=== PATIENT | male | born 1930 | race Caucasian/White ===

== ENCOUNTER 2017-01-13 17:37 | Observation (INO) | payer MEDICARE ==
[~2017-01-13] VITALS: Ht 180.3 cm; Wt 85.0 kg
[~2017-01-13 17:37] MED LIST: 1-ME1LIQ PO; ALLO100T PO; ATEN-104 PO; ATOR10TA PO; CHLO50TA PO; CLON.2 PO; FURO1TAB93 PO; LOSA50TA PO; PLAV75TA PO
[2017-01-13 17:43] VITALS: BP 195/93; PULSE 112; RESP 18; TEMP 97.7; O2SAT 99
[2017-01-13 18:20] LABS: AUTOMATED NEUTROPHIL # 7.3 TH/MM3 (1.8-7.7); BASOPHIL # 0.2 TH/MM3 (0-0.2); BASOPHIL % 1.8 % (0.0-2.0); EOSINOPHIL # 0.4 TH/MM3 (0-0.4); EOSINOPHIL % 3.7 % (0.0-4.0); HEMATOCRIT 32.4 % (39.0-51.0); HEMO FLAGS DIFF FINAL; MEAN CELL VOLUME 97.3 FL (80.0-100.0); MEAN CORPUSCULAR HEMOGLOBIN 31.8 PG (27.0-34.0); MEAN CORPUSCULAR HGB CONC 32.7 % (32.0-36.0); MONO % 6.4 % (0.0-8.0); NEUT % 69.1 % (16.0-70.0); PLATELET COUNT 343 TH/MM3 (150-450); RED BLOOD COUNT 3.33 MIL/MM3 (4.50-5.90); RED CELL DISTRIBUTION WIDTH 13.3 % (11.6-17.2); WHITE BLOOD COUNT 10.6 TH/MM3 (4.0-11.0)
--- NOTE | 2017-01-13 18:21 | RADRPT ---
EXAM DATE/TIME: 01/13/2017 17:55 [place] COMPARISON: No previous studies available for comparison. INDICATIONS : Chest pain, mostly at night. MEDICAL HISTORY : Hypertension. SURGICAL HISTORY : None. ENCOUNTER: Initial ACUITY: 3 days PAIN SCORE: 7/10 LOCATION: middle chest. FINDINGS: Mild patchy infiltrates seen of both lungs, mainly the bases. No perceptible effusion. No pneumothora x. Heart size upper limits of normal. Thoracic aorta is tortuous and atherosclerotic. CONCLUSION: Mild bibasilar consolidation. Trevin Montoya MD on January 13, 2017 at 18:19 Board Certified Radiologist. This report was verified electronically.
[2017-01-13 18:27] LABS: PROTHROMBIN TIME - PATIENT 10.7 SEC (9.8-11.6)
[2017-01-13 18:36] VITALS: BP 183/99; PULSE 102; RESP 21; O2SAT 100
[2017-01-13 18:45] LABS: BICARBONATE 25.5 MEQ/L (21.0-32.0); POTASSIUM 4.3 MEQ/L (3.5-5.1)
[2017-01-13] MEDS ORDERED: CLOP100P (19:20)
[2017-01-13] MEDS ORDERED: ATEN100T PO (19:20)
[2017-01-13] MEDS ORDERED: FURO40TA PO (19:20)
[2017-01-13] MEDS ORDERED: CHLO25TA2 PO (19:20)
[2017-01-13] MEDS ORDERED: AMLO10TA2 PO (19:20)
[2017-01-13] MEDS ORDERED: LOSA100T PO (19:20)
[2017-01-13] MEDS ORDERED: ALLO100T PO (19:20)
[2017-01-13] MEDS ORDERED: PLAV75TA29 PO (19:20)
[2017-01-13] MEDS ORDERED: CLON0.2T PO (19:20)
[2017-01-13] MEDS ORDERED: ATOR10TA15 PO (19:20)
[2017-01-13] MEDS ORDERED: TAMS0.4C4 PO (19:20)
--- NOTE | 2017-01-13 19:26 | PD ---
HPI Chief Complaint: Cardiac Complaint Time Seen by Provider: 18:21 Travel History International Travel<30 days: No Contact w/Intl Traveler<30days: No Traveled to known affect area: No History of Present Illness HPI 86-year-old male came to the emergency room with history of nocturnal chest pain for past 3 nights. Patient describes it as burning sensation in his chest like acid reflux. He has been taking Tums for it and the symptoms did not fully subside and returned the next night. Today he went to see his primary care when EKG was done and the primary care detected some abnormality on the EKG. He asked the patient to come to the emergency room. Patient does not have any history of coronary stents or bypass surgery. He's never had a stress test in the past. Patient says that he had an echocardiogram done about 6-8 months ago told that everything was within normal limits. 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 Currently denies chest pain-free. He does not appear to be in any significant distress. PFSH Past Medical History Narrative Medical List of his past medical, surgical, social and family history was reviewed from the nursing note. Hx Anticoagulant Therapy: Yes (PLAVIX) Arthritis: Yes Cancer: Yes (skin) Cardiovascular Problems: Yes (HEART MURMUR) High Cholesterol: Yes Cerebrovascular Accident: Yes (tia) Gout: Yes Hypertension: Yes Renal Failure: Yes Influenza Vaccination: Yes Past Surgical History Eye Surgery: Yes (cataract) Tonsillectomy: Yes Social History Alcohol Use: Yes (wine daily) Tobacco Use: No Substance Use: No Allergies-Medications (Allergen,Severity, Reaction): Coded Allergies: No Known Allergies (Unverified , 01/13/17) Comments No known drug allergies. Reported Meds & Prescriptions Reported Meds & Active Scripts Active Reported Tamsulosin (Tamsulosin HCl) 0.4 Mg Cap 0.4 Mg PO HS Clopidogrel Bisulfate 100 Gm Powder Plavix (Clopidogrel Bisulfate) 75 Mg Tab 75 Mg PO DAILY Chlorthalidone 25 Mg Tab 25 Mg PO DAILY Amlodipine (Amlodipine Besylate) 10 Mg Tab 10 Mg PO DAILY Furosemide 40 Mg Tab 40 Mg PO DAILY Atorvastatin (Atorvastatin Calcium) 10 Mg Tab 10 Mg PO HS Losartan (Losartan Potassium) 100 Mg Tab 100 Mg PO DAILY Clonidine (Clonidine HCl) 0.2 Mg Tab 0.2 Mg PO BID Atenolol 100 Mg Tab 100 Mg PO DAILY Narrative Medication List of his home medications reviewed from the nursing note. Review of Systems Except as stated in HPI: all other systems reviewed are Neg Physical Exam Narrative GENERAL: Awake, alert, elderly and frail, no obvious distress SKIN: Focused skin assessment warm/dry. HEAD: Atraumatic. Normocephalic. EYES: Pupils equal and round. No scleral icterus. No injection or drainage. ENT: No nasal bleeding or discharge. Mucous membranes pink and moist. NECK: Trachea midline. No JVD. CARDIOVASCULAR: Regular rate and rhythm. No murmur appreciated. RESPIRATORY: No accessory muscle use. Clear to auscultation. Breath sounds equal bilaterally. GASTROINTESTINAL: Abdomen soft, non-tender, nondistended. Hepatic and splenic margins not palpable. MUSCULOSKELETAL: No obvious deformities. No clubbing. No cyanosis. No edema. NEUROLOGICAL: Awake and alert. No obvious cranial nerve deficits. Motor grossly within normal limits. Normal speech. PSYCHIATRIC: Appropriate mood and affect; insight and judgment normal. Data Data Last Documented VS Vital Signs Date Time Temp Pulse Resp B/P Pulse Ox O2 Delivery O2 Flow Rate FiO2 01/13/17 18:36 102 21 183/99 100 Room Air 01/13/17 17:43 97.7 Orders Electrocardiogram (01/13/17 17:52) Complete Blood Count With Diff (01/13/17 17:52) Basic Metabolic Panel (Bmp) (01/13/17 17:52) Ckmb (Isoenzyme) Profile (01/13/17 17:52) Troponin I (01/13/17 17:52) Chest, Single Ap (01/13/17 17:52) Prothrombin Time / Inr (Pt) (01/13/17 17:52) Admit Order (Ed Use Only) (01/13/17 19:09) Labs Laboratory Tests Test 01/13/17 18:05 White Blood Count 10.6 TH/MM3 Red Blood Count 3.33 MIL/MM3 Hemoglobin 10.6 GM/DL Hematocrit 32.4 % Mean Corpuscular Volume 97.3 FL Mean Corpuscular Hemoglobin 31.8 PG Mean Corpuscular Hemoglobin 32.7 % Concent Red Cell Distribution Width 13.3 % Platelet Count 343 TH/MM3 Mean Platelet Volume 7.8 FL Neutrophils (%) (Auto) 69.1 % Lymphocytes (%) (Auto) 19.0 % Monocytes (%) (Auto) 6.4 % Eosinophils (%) (Auto) 3.7 % Basophils (%) (Auto) 1.8 % Neutrophils # (Auto) 7.3 TH/MM3 Lymphocytes # (Auto) 2.0 TH/MM3 Monocytes # (Auto) 0.7 TH/MM3 Eosinophils # (Auto) 0.4 TH/MM3 Basophils # (Auto) 0.2 TH/MM3 CBC Comment DIFF FINAL Differential Comment Prothrombin Time 10.7 SEC Prothromb Time International 1.0 RATIO Ratio Sodium Level 131 MEQ/L Potassium Level 4.3 MEQ/L Chloride Level 98 MEQ/L Carbon Dioxide Level 25.5 MEQ/L Anion Gap 8 MEQ/L Blood Urea Nitrogen 51 MG/DL Creatinine 2.67 MG/DL Estimat Glomerular Filtration 23 ML/MIN Rate Random Glucose 137 MG/DL Calcium Level 8.9 MG/DL Total Creatine Kinase 55 U/L Troponin I 0.02 NG/ML MDM Medical Decision Making Medical Screen Exam Complete: Yes Emergency Medical Condition: Yes Medical Record Reviewed: Yes Interpretation(s) Twelve-lead EKG was reviewed by me. Normal sinus rhythm, left axis deviation, old inferior and anterior CO with peaked T waves, tachycardia. Heart rate of 108 bpm. Differential Diagnosis ACS, non-STEMI, nonspecific chest pain Narrative Course 7:24 PM given his age being primary's factor I would like to admit this patient to the chest pain center. Patient does have known history of stage IV kidney disease. Rest of his workup is within acceptable range. Procedures EKG Prior to Arrival: Yes Diagnosis Primary Impression: Chest pain Qualified Code: R07.9 - Chest pain, unspecified type Admitting Information Admitting Physician Requests: Observation Scripts Levofloxacin 500 Mg [id number] Mg PO EVERY OTHER DAY #5 TAB Ref 0 Prov:Ibrahima Thomas 01/14/17 Omeprazole 20 Mg Tab20 Mg PO DAILY #30 TAB Ref 0 Prov:Ibrahima Thomas 01/14/17 Hydralazine HCl 10 Mg [id number] Mg PO Q8HR #90 TAB Prov:Ibrahima Thomas 01/14/17 Ansley Rahman MD Jan 13, 2017 19:26
[2017-01-13] MEDS ORDERED: METOPROLOL TARTRATE 25 MG TAB PO ONE (19:30)
[2017-01-13 21:00] VITALS: BP 166/81; PULSE 94; RESP 20
[2017-01-13] MEDS ORDERED: SODIUM CHLORIDE 0.9% FLUSH 10 ML FLUSH IV FLUSH PRN (21:15)
[2017-01-13] MEDS ORDERED: ACETAMINOPHEN 500 MG CPLT PO PRN (21:15)
[2017-01-13 22:18] VITALS: BP 186/86; PULSE 93; RESP 20; O2SAT 98
[2017-01-13 23:47] VITALS: BP 184/80; PULSE 94; RESP 18; TEMP 98.8; O2SAT 97
[2017-01-14 01:42] VITALS: PULSE 101
[2017-01-14 04:29] VITALS: BP 197/91; PULSE 94; RESP 18; TEMP 98.5; O2SAT 99
[2017-01-14 08:00] VITALS: PULSE 94
[2017-01-14 08:02] VITALS: BP 204/93; PULSE 96; RESP 18; TEMP 98.2; O2SAT 97
[2017-01-14] MEDS ORDERED: LEVOFLOXACIN 500 MG TAB PO ONE (08:30)
[2017-01-14] MEDS ORDERED: LOSARTAN 50 MG TAB PO SCH (09:00)
[2017-01-14] MEDS ORDERED: ATENOLOL 100 MG TAB PO SCH (09:00)
[2017-01-14] MEDS ORDERED: cloNIDine HCL 0.2 MG TAB PO SCH (09:00)
[2017-01-14] MEDS ORDERED: SODIUM CHLORIDE 0.9% FLUSH 10 ML FLUSH IV FLUSH SCH (09:00)
[2017-01-14] MEDS ORDERED: FUROSEMIDE 40 MG TAB PO SCH (09:00)
[2017-01-14] MEDS ORDERED: CLOPIDOGREL 75 MG TAB PO SCH (09:00)
[2017-01-14 09:51] VITALS: BP 162/75
--- NOTE | 2017-01-14 09:52 | HHI.HP ---
[facility] Primary Care Physician Diane Salazar Chief Complaint Chest pain History of Present Illness This is a 86-year-old male that presents to ED complaining of developing a chest pressure while laying down at night for the last 3 evenings. He states that it feels like acid indigestion. He has taken Tums for it which resolves the symptoms. He was seen by his primary care physician yesterday and was told to go to the ED for evaluation. He denies recent travel. Denies recent illness. Denies fevers or chills. He has not been coughing. Denies history of CAD. Cannot recall prior stress testing. He does have history of chronic kidney disease and follows Dr. Tan for that. He states that he had an outpatient 2-D echo about 6-8 months ago and really is not sure the results. 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 His primary care physician set this up. He states that he has known of a heart murmur for many years. Review of Systems General: Patient denies fevers, chills recent, and recent travel HEENT: Patient denies headache, sore throat, difficulty swallowing. Cardiovascular: Has the chest discomfort as mentioned above. Denies sensation of heart beating rapidly or irregularly. No syncope. Denies diaphoresis. Respiratory: Denies shortness of breath or inspirational chest discomfort. Denies coughing wheezing or hemoptysis. GI: Patient denies nausea, vomiting, diarrhea, abdominal pain, bloody stools. Musculoskeletal: Patient denies joint pain or edema. Denies calf pain or edema. Neurovascular: Patient denies numbness, tingling, weakness in extremities. Denies headache. Endocrine: Denies polyuria and polydipsia. Hematologic: Denies easy bruising. Skin: Denies rash or itching. Past Family Social History Allergies: Coded Allergies: No Known Allergies (Unverified , 01/13/17) Past Medical History Chronic kidney disease, hypertension, hyperlipidemia, history of TIA. States that he has had a heart murmur. Denies diabetes and known CAD. Past Surgical History Tonsillectomy and cataracts. Reported Medications Reported Meds & Active Scripts Active Reported Tamsulosin (Tamsulosin HCl) 0.4 Mg Cap 0.4 Mg PO HS Clopidogrel Bisulfate 100 Gm Powder Plavix (Clopidogrel Bisulfate) 75 Mg Tab 75 Mg PO DAILY Chlorthalidone 25 Mg Tab 25 Mg PO DAILY Amlodipine (Amlodipine Besylate) 10 Mg Tab 10 Mg PO DAILY Furosemide 40 Mg Tab 40 Mg PO DAILY Atorvastatin (Atorvastatin Calcium) 10 Mg Tab 10 Mg PO HS Losartan (Losartan Potassium) 100 Mg Tab 100 Mg PO DAILY Clonidine (Clonidine HCl) 0.2 Mg Tab 0.2 Mg PO BID Atenolol 100 Mg Tab 100 Mg PO DAILY Active Ordered Medications Current Medications Medications (Trade) Dose Ordered Sig/Jasmin Route Start Time Stop Time Status Last Admin (NS Flush) 2 ml UNSCH PRN IV FLUSH 01/13/17 21:15 (NS Flush) 2 ml BID IV FLUSH 01/14/17 09:00 01/14/17 08:38 (Tylenol) 500 mg Q4H PRN PO 01/13/17 21:15 (Norvasc) 10 mg DAILY PO 01/14/17 09:00 01/14/17 08:37 (Tenormin) 100 mg DAILY PO 01/14/17 09:00 01/14/17 09:16 (Lipitor) 10 mg HS PO 01/14/17 21:00 (Catapres) 0.2 mg BID PO 01/14/17 09:00 01/14/17 08:36 (Plavix) 75 mg DAILY PO 01/14/17 09:00 01/14/17 08:36 (Lasix) 40 mg DAILY PO 01/14/17 09:00 01/14/17 08:37 (Cozaar) 100 mg DAILY PO 01/14/17 09:00 01/14/17 08:37 (Flomax) 0.4 mg HS PO 01/14/17 21:00 Patient Own Medication PT OWN MED: CHLORHTALIDONE 25MG TAB... DAILY PO 01/14/17 10:00 Future Hold Family History Denies family history of CAD. Social History He is a former smoker. Denies alcohol or illicit drugs. Physical Exam Vital Signs Vital Signs Date Time Temp Pulse Resp B/P Pulse Ox O2 Delivery O2 Flow Rate FiO2 01/14/17 08:02 98.2 96 18 204/93 97 01/14/17 04:29 98.5 94 18 197/91 99 01/14/17 01:42 101 01/13/17 23:47 98.8 94 18 184/80 97 01/13/17 22:18 93 20 186/86 98 6/5/17 21:00 94 20 166/81 01/13/17 18:36 102 21 183/99 100 Room Air 01/13/17 17:43 97.7 112 18 195/93 99 Physical Exam GENERAL: This is a well-nourished, well-developed patient, in no apparent distress. Patient speaks in clear complete sentences. Patient is pleasant. HEENT: Head is atraumatic and normocephalic. Neck is supple without lymphadenopathy and trachea is midline. No JVD or carotid bruits. CARDIOVASCULAR: Grade 2-3 systolic murmur right sternal border radiating to right neck. Regular rate and rhythm without gallops or rubs. RESPIRATORY: Clear to auscultation. Breath sounds equal bilaterally. No wheezes , rales, or rhonchi. Chest wall is nontender. No use of accessory muscles. GASTROINTESTINAL: Abdomen is nontender, nondistended. Abdomen soft. No obvious pulsatile mass or bruit. No CVA tenderness. Strong femoral pulses bilaterally. Normal bowel sounds in all quadrants. MUSCULOSKELETAL: Patient is moving upper and lower extremities freely. No calf tenderness or edema, no Homans sign. Strong pulses in upper and lower extremities. NEUROLOGICAL: Patient is alert and oriented. Cranial nerves 2-12 are grossly intact. No focal deficits and speech is clear. SKIN: No rash and turgor is normal. Laboratory Laboratory Tests Test 01/13/17 01/13/17 01/14/17 18:05 21:45 00:00 White Blood Count 10.6 Red Blood Count 3.33 Hemoglobin 10.6 Hematocrit 32.4 Mean Corpuscular Volume 97.3 Mean Corpuscular Hemoglobin 31.8 Mean Corpuscular Hemoglobin 32.7 Concent Red Cell Distribution Width 13.3 Platelet Count 343 Mean Platelet Volume 7.8 Neutrophils (%) (Auto) 69.1 Lymphocytes (%) (Auto) 19.0 Monocytes (%) (Auto) 6.4 Eosinophils (%) (Auto) 3.7 Basophils (%) (Auto) 1.8 Neutrophils # (Auto) 7.3 Lymphocytes # (Auto) 2.0 Monocytes # (Auto) 0.7 Eosinophils # (Auto) 0.4 Basophils # (Auto) 0.2 CBC Comment DIFF FINAL Differential Comment Prothrombin Time 10.7 Prothromb Time International 1.0 Ratio Sodium Level 131 Potassium Level 4.3 Chloride Level 98 Carbon Dioxide Level 25.5 Anion Gap 8 Blood Urea Nitrogen 51 Creatinine 2.67 Estimat Glomerular Filtration 23 Rate Random Glucose 137 Calcium Level 8.9 Total Creatine Kinase 55 54 92 Troponin I 0.02 0.04 0.04 Result Diagram: 01/13/17180401/13/171804 Imaging Last 48 hours Impressions Chest X-Ray 01/13/17 1752 Signed Impressions: Service Date/Time: Friday, January 13, 2017 17:55 - CONCLUSION: Mild bibasilar consolidation. Trevin Montoya MD Course EKGs have sinus rhythm to sinus tachycardia without significant ST segment depressions or elevations. Borderline first-degree AV block. Assessment and Plan Assessment and Plan * Atypical chest pain: Patient has had serial cardiac enzymes and EKGs for ruling out purposes. He has been seen by Dr. Wallace of cardiology in the chest pain center. He will not undergo a stress test at this time. He'll be treated for his community acquired pneumonia and get his blood pressure under better control. He will then follow-up with Dr. Wallace in her office in one week and at that time we'll determine if stress testing is needed. * Hypertension: Resume his medication. Monitor his blood pressure. Might need to add hydralazine. * Hyperlipidemia: Continue current medication. * Chronic kidney disease: Patient will need to follow-up with his registered representative. We will discontinue allopurinol. * Aortic murmur: Records will be requested to Dr. Wallace's office so she may review that when she sees him next week. * Community-acquired pneumonia: We'll give first dose of Levaquin here and then renal dose of Levaquin to follow. He should follow-up with his primary care physician. Patient is stable at this time. He is agreeable to this plan. Ibrahima Thomas Jan 14, 2017 09:52
[2017-01-14] MEDS ORDERED: CHLORTHALIDONE 25 MG PO SCH (10:00)
[2017-01-14] MEDS ORDERED: HYDR-3798 PO (10:00)
--- NOTE | 2017-01-14 10:12 | HHI.DCPOC ---
Discharge Care Plan Diagnosis: (1) Chest pain (2) Community acquired pneumonia (3) Hypertension (4) Hyperlipidemia (5) Chronic kidney disease Goals to Promote Your Health * To prevent worsening of your condition and complications * To maintain your health at the optimal level Directions to Meet Your Goals Take your medications as prescribed Follow your dietary instruction Follow activity as directed Keep your appointments as scheduled Take your immunizations and boosters as scheduled If your symptoms worsen call your PCP, if no PCP go to Urgent Care Center or Emergency Room Smoking is Dangerous to Your Health. Avoid second hand smoke Call the 24-hour hour crisis hotline for domestic abuse at Ibrahima Thomas Jan 14, 2017 10:12
[2017-01-14] MEDS: hydrALAZINE HCL 10 MG TAB PO SCH ×2 (10:39→12:06)
[2017-01-14] MEDS ORDERED: OMEP20TA PO (11:03)
[2017-01-14] MEDS ORDERED: LEVO500T8 PO (11:15)
[2017-01-14 11:20] VITALS: BP 167/79; PULSE 68; RESP 18; TEMP 97.6; O2SAT 96
--- NOTE | 2017-01-14 16:18 | EKG ---
Date Performed: 01/14/2017 Time Performed: 05:18:00 PTAGE: 86 years EKG: Sinus rhythm WITH FIRST DEGREE AV BLOCK LEFT VENTRICULAR HYPERTROPHY AND ST-T CHANGE INFERIOR MYOCARDIAL INFARCTI ON ABNORMAL ECG Since PREVIOUS TRACING , no significant change noted PREVIOUS TRACIN01/13/2017 21.48 DOCTOR: Leslie Wallace Interpretating Date/Time 01/14/2017 16:16:11
--- NOTE | 2017-01-14 16:22 | EKG ---
Date Performed: 01/13/2017 Time Performed: 17:58:06 PTAGE: 86 years EKG: ECTOPIC ATRIAL TACHYCARDIA WITH SHORT ND INTERVAL LEFT VENTRICULAR HYPERTROPHY AND ST-T AMY NGE INFERIOR MYOCARDIAL INFARCTION ABNORMAL ECG Since PREVIOUS TRACING , patient is now tachycardic PREVIOUS TRACIN05/06/2016 14.04 DOCTOR: Leslie Wallace Interpretating Date/Time 01/14/2017 16:19:51
--- NOTE | 2017-01-14 16:22 | EKG ---
Date Performed: 01/13/2017 Time Performed: 21:48:36 PTAGE: 86 years EKG: Sinus rhythm WITH FIRST DEGREE AV BLOCK BORDERLINE LEFT AXIS DEVIATION LEFT VENTRICULAR HYPERTROPHY AND ST-T PHAM GE ABNORMAL ECG Since PREVIOUS TRACING , no significant change noted PREVIOUS TRACIN01/13/2017 17.58 DOCTOR: Leslie Wallace Interpretating Date/Time 01/14/2017 16:20:49
[2017-01-14] MEDS ORDERED: ATORVASTATIN 10 MG TAB PO SCH (21:00)
[2017-01-14] MEDS ORDERED: TAMSULOSIN HCL 0.4 MG CAP PO SCH (21:00)
== END 2017-01-14 13:35 | disposition home or self-care (01) ==
LOC: NEPC 17:37 → NEDA 19:11 → NEPGCP 22:37
PROVIDERS: ADMIT Internal Medicine Interventional Cardiology; ATTEND Internal Medicine Interventional Cardiology
DX: R07.89 Other chest pain (principal); I12.9 Hypertensive chronic kidney disease with stage 1 through stage 4 chronic kidney disease, or unspecified chronic kidney disease; N18.9 Chronic kidney disease, unspecified; R01.1 Cardiac murmur, unspecified; J18.9 Pneumonia, unspecified organism; E78.5 Hyperlipidemia, unspecified; E78.00 Pure hypercholesterolemia, unspecified; M19.90 Unspecified osteoarthritis, unspecified site; Z86.73 Personal history of transient ischemic attack (TIA), and cerebral infarction without residual deficits; Z79.02 Long term (current) use of antithrombotics/antiplatelets; Z87.891 Personal history of nicotine dependence
CPT/HCPCS: 71010; 80048; 82550; 84484; 85025; 85610; 93005; 99285; G0378